=== PATIENT | female | born 1960 | race Caucasian/White ===

== ENCOUNTER 2020-09-14 11:03 | Outpatient (CLI) | payer BC, SELFPAY ==
--- NOTE | ~2020-09-14 | CT_ITS ---
EXAMINATION: CT lung screening EXAM DATE: 09/14/2020 11:24 INDICATION: Personal history of nicotine dependence. Left-sided breast cancer. TECHNIQUE: Spiral low dose CT of the chest without contrast. Axial, coronal and sagittal images were reviewed. The dose-length product (DLP) for this examination was 293.07 mGy-cm. The exposure was t ailored according to patient size (auto mA exposure control), and iterative reconstruction (ASIR) was used as additional dose reduction technique. Comparison is made to prior examination from 05/31/2019 . FINDINGS: Again there is very faint but diffuse lung mosaic attenuation, most likely some air trappi ng. No suspicious pulmonary nodules. Small amount of debris in the right mainstem bronchus. There is no mediastinal, hilar or axillary lymphadenopathy. There are no pleural or pericardial effusions. There is no pneumothorax. Heart normal in size. There are dense coronary artery calcifications. There is hepatic steatosis. There is a left adrenal adenoma measuring 2.3 cm. There is mild to moder ate thoracic spondylosis without osteoblastic or osteolytic lesions identified. IMPRESSION: 1. Lung-RADS category 1A, negative (<1%chance of malignancy); recommend continued LDCT screening in 1 year. 2. Dense coronary artery calcifications, consider cardiology consult if not recently evaluated. Reviewed, dictated and finalized at location B. COVERER IMPRESSION: 1. Lung-RADS category 1A, negative (<1%chance of malignancy); recommend contin ued LDCT screening in 1 year. 2. Dense coronary artery calcifications, consider cardiology consult if not re cently evaluated.
== END 2020-09-14 11:04 | disposition home or self-care (01) ==
LOC: CHSIMG 11:04
PROVIDERS: PCP Internal Medicine; Visit Provider Internal Medicine
DX: Z12.2 Encounter for screening for malignant neoplasm of respiratory organs (principal); Z87.891 Personal history of nicotine dependence
CPT/HCPCS: 71271

== ENCOUNTER 2021-03-19 12:44 | Outpatient (CLI) | payer BC, SELFPAY ==
--- NOTE | ~2021-03-19 | XR_ITS ---
EXAMINATION: XR knee RT 3V EXAM DATE: 03/19/2021 13:12 INDICATION: Right knee pain 2-3 weeks, numbness and tingling. TECHNIQUE: Three projections of the right knee. There is no prior study for comparison. FINDINGS: No evidence osteochondral defect or joint body in the right knee joint. There is mild pa tellofemoral compartment primary osteoarthritis. There are no acute fractures or dislocations identif ied. There is no subcutaneous gas. The soft tissue is unremarkable. There are no radiopaque forei gn bodies. No joint effusion. IMPRESSION: Mild right patellofemoral compartment osteoarthritis. Reviewed, dictated and finalized at location B.
== END 2021-03-19 12:45 | disposition home or self-care (01) ==
LOC: CHSIMG 12:46
PROVIDERS: PCP Internal Medicine; Visit Provider Internal Medicine
DX: M25.561 Pain in right knee (principal); R32 Unspecified urinary incontinence
CPT/HCPCS: 73562

== ENCOUNTER 2021-11-08 13:46 | Outpatient (CLI) | payer BC, SELFPAY ==
--- NOTE | ~2021-11-08 | CT_ITS ---
EXAMINATION:CT lung screening DATE: 11/08/2021 14:07 INDICATION: Personal history of nicotine dependence. TECHNIQUE: Computed tomography (CT) of the chest was performed without intravenous contrast. Automate d exposure control and iterative reconstruction technique were employed. The dose-length product (DLP ) was 253.31 mGy-cm. COMPARISON: Chest CT 09/14/2020 FINDINGS: The lungs demonstrate chronic mosaic attenuation, likely small airways disease. A calcified right lung nodule and calcified right hilar and mediastinal lymph nodes are consistent with old gran ulomatous disease. No pleural effusion. The heart size is normal. There are coronary artery calcifica tions. No pericardial effusion. There is diffuse hepatic steatosis. There is a 2.1 cm mass in left ad renal gland measuring low-attenuation, consistent with an adenoma. There is mild chronic anterior wed ging of multiple thoracic vertebral bodies. There is moderate thoracic spondylosis. IMPRESSION: 1. Lung-RADS category 1: Negative. Continue annual screening with noncontrast low-dose chest CT in 12 months. Reviewed, dictated and finalized at location B. IMPRESSION: 1. Lung-RADS category 1: Negative. Continue annual screening with noncontrast l ow-dose chest CT in 12 months.
== END 2021-11-08 13:47 | disposition home or self-care (01) ==
LOC: CHSIMG 13:47
PROVIDERS: PCP Internal Medicine; Visit Provider Internal Medicine
DX: Z12.2 Encounter for screening for malignant neoplasm of respiratory organs (principal); Z87.891 Personal history of nicotine dependence
CPT/HCPCS: 71271

== ENCOUNTER 2022-05-04 04:53 | Emergency (ER) | payer BC, SELFPAY ==
[2022-05-04] VITALS (52 sets, daily range): BP systolic 102–162; BP diastolic 50–84; PULSE 63–94; RESP 13–27; TEMP 36.4–36.8; O2SAT 90–98
--- NOTE | ~2022-05-04 | XR_ITS ---
EXAMINATION: XR chest 1V portable DATE: 05/04/2022 05:35 INDICATION: Anterior central chest pain with shortness of breath TECHNIQUE: frontal view of the chest was obtained. COMPARISON: Chest CT dated 11/08/2021 FINDINGS: The lungs are clear with no discernible airspace opacities, pulmonary edema, pleural effusion or pneu mothorax. The cardiomediastinal silhouette is normal. Bone island at the right humeral head. IMPRESSION: 1. No acute cardiopulmonary disease. Reviewed, dictated and finalized at location A.
--- NOTE | ~2022-05-04 | CT_ITS ---
EXAMINATION: CTA chest PE protocol DATE: 05/04/2022 06:51 INDICATION: Shortness of breath and anterior chest pain TECHNIQUE: Computed tomography (CT) pulmonary angiogram of the chest was performed with 100 mL Omnipa que-350 intravenous contrast. Additional 3D reconstructions utilizing coronal maximum intensity proje ction (MIP) were performed. The dose-length product was 743.29 mGy-cm. COMPARISON: None FINDINGS: No pulmonary embolism. Mild mosaic attenuation of both regions of increased lucency suggesting subseg mental air trapping in the setting of small airway disease along with additional scattered subsegment al groundglass opacities which could represent relative atelectasis, early pneumonia or mild pulmonar y edema. Calcified right middle lobe nodule and calcified right hilar and mediastinal lymph nodes con sistent with old granulomatous disease. No pleural effusion or pneumothorax. Heart size is normal. At herosclerotic coronary artery calcification. No pericardial effusion. There are small amount of bubbl y mucus in the dependent left mainstem bronchus. Thoracic aorta is normal in caliber with no dissecti on. No pathologically enlarged thoracic lymphadenopathy. Diffuse hepatic steatosis. Bilateral low-att enuation adenomas measuring 1.2 cm on the right and 2.5 cm on the left. Chronic appearing mild anteri or wedging at T10 and T11. Moderate to severe thoracolumbar spondylosis. IMPRESSION: 1. No pulmonary embolism. 2. Mosaic attenuation with regions of subsegmental air trapping related to small airway disease and s ubtle scattered groundglass opacities which could represent result of atelectasis, early pneumonia or mild pulmonary edema. Reviewed, dictated and finalized at location A. IMPRESSION: 1. No pulmonary embolism. 2. Mosaic attenuation with regions of subsegmental air trapping related to smal l airway disease and subtle scattered groundglass opacities which could represe nt result of atelectasis, early pneumonia or mild pulmonary edema.
--- NOTE | 2022-05-04 04:59 | ED.SOB ---
HPI - SOB/Dyspnea General Chief Complaint: Chest Pain <Laurent Munoz MD - Last Filed: 05/26/22 11:13> Stated Complaint: Chest Pain <Laurent Munoz MD - Last Filed: 05/26/22 11:13> Time Seen by Provider: 05/04/22 07:10 <Laurent Munoz MD - Last Filed: 05/26/22 11:13> Source: patient <Laurent Munoz MD - Last Filed: 05/26/22 11:13> History of Present Illness HPI Narrative: 62-year-old female, smoker with hypertension, dyslipidemia, diabetes mellitus, breast cancer, CVA without any residual defects, status post right carotid endarterectomy, negative cardiac catheterization 5 years ago presents to the ER with a 4 hour history of -- shortness of breath -- anterior chest pain it started at 2:00 a.m. the pain radiates to both shoulders. Initial pain level was 4/10 and this is currently 2/10. she had a similar episode earlier in the week and went to her primary care physician who advised her to come to the ER if she had a subsequent episode. currently the patient is pain-free. <Laurent Munoz MD - Last Filed: 05/26/22 11:13> MD elicited complaint: shortness of breath and chest pain <Laurent Munoz MD - Last Filed: 05/26/22 11:13> Onset (ago): hour(s) ( Started 3 hours ago) <Laurent Munoz MD - Last Filed: 05/26/22 11:13> Timing: improved <Laurent Munoz MD - Last Filed: 05/26/22 11:13> Severity: moderate <Laurent Munoz MD - Last Filed: 05/26/22 11:13> Exacerbating factors: nothing <Laurent Munoz MD - Last Filed: 05/26/22 11:13> Relieving factors: nothing <Laurent Munoz MD - Last Filed: 05/26/22 11:13> Associated symptoms: chest pain <Laurent Munoz MD - Last Filed: 05/26/22 11:13> Treatment prior to arrival: none <Laurent Munoz MD - Last Filed: 05/26/22 11:13> Related Data Home Medications: Home Medications Medication Instructions Recorded Confirmed anastrozole 1 mg tablet 1 mg PO DAILY 09/29/19 05/04/22 atenolol 50 mg tablet 50 mg PO DAILY 09/29/19 05/04/22 calcium carbonate 600 mg calcium 600 mg PO BID 09/29/19 05/04/22 (1,500 mg) tablet (Calcium) insulin detemir U-100 100 unit/mL 42 unit subcut QPM 09/29/19 05/04/22 (3 mL) subcutaneous pen (Levemir FlexTouch U-100 Insulin) irbesartan 75 mg tablet 75 mg PO DAILY 09/29/19 05/04/22 metformin 500 mg tablet,extended 2,000 mg PO BID 09/29/19 05/04/22 release 24 hr omega 8-gcj-xkw-fish oil 1,000 mg 1 cap PO BID 09/29/19 05/04/22 (120 mg-180 mg) capsule (Fish Oil) triamterene 37.5 1 tablet PO DAILY 09/29/19 05/04/22 mg-hydrochlorothiazide 25 mg tablet aspirin 81 mg tablet,delayed 81 mg PO DAILY 05/04/22 05/04/22 release duloxetine 20 mg capsule,delayed 20 mg PO DAILY 05/04/22 05/04/22 release omeprazole 20 mg capsule,delayed 20 mg PO DAILY 05/04/22 05/04/22 release <Laurent Munoz MD - Last Filed: 05/26/22 11:13> Allergies/Adverse Reactions: Allergies Allergy/AdvReac Type Severity Reaction Status Date / Time Wrrxdze-FFT-GeX Reductase AdvReac MUSCLE Verified 05/04/22 05:17 Inhibitor CRAMPING [Gfnbbnh-Wiw-Hmx Reductase Inhibitor] <Laurent Munoz MD - Last Filed: 05/26/22 11:13> Review of Systems Review of Systems: All systems reviewed & are unremarkable except as noted in HPI and below <Laurent Munoz MD - Last Filed: 05/26/22 11:13> Constitutional: Constitutional: Reports as per HPI and Reports no additional constitutional complaints <Laurent Munoz MD - Last Filed: 05/26/22 11:13> Eyes: Eyes: Reports as per HPI and Reports no additional eye complaints <Laurent Munoz MD - Last Filed: 05/26/22 11:13> ENT: Reports system reviewed and no additional complaints, except as documented and Reports as per HPI <Laurent Munoz MD - Last Filed: 05/26/22 11:13> Cardiovascular: Cardiovascular: Reports as per HPI, Reports no additional cardiovascular complaints and
--- NOTE | 2022-05-04 05:00 | ECG_ITS ---
Measurements Intervals [place] Rate: 81 P: 26 WI: 144 QRS: 12 QRSD: 103 T: 59 QT: 379 QTc: 440 Interpretive Statements SINUS RHYTHM WITH SINUS ARRHYTHMIA BASELINE ARTIFACT MODERATE ST DEPRESSION CONSIDER MYOCARDIAL ISCHEMIA ABNORMAL ECG NO PREVIOUS ECG AVAILABLE FOR COMPARISON Electronically Signed On 05-04-2022 15:33:28 CDT by Jayant Andersen M.D.
[2022-05-04 05:35] LABS: Basophils Absolute Auto 0.08 K/mm3 (0.00-0.10); Basophils Percent Auto 0.7 % (0.0-1.0); Eosinophils Absolute Auto 0.14 K/mm3 (0.02-0.50); Eosinophils Percent Auto 1.2 % (1.0-6.0); Hematocrit 42.4 % (35.0-49.0); Immature Granulocyte Absolute 0.09 K/mm3 (0.00-0.00); Immature Granulocyte Percent A 0.8 % (0.0-0.0); Lymphocytes Absolute Auto 1.58 K/mm3 (1.10-4.50); Lymphocytes Percent Auto 14.1 % (18.0-42.0); Mean Corpuscular Hemoglobin 30.4 pg (27.0-31.0); Mean Corpuscular Volume 92.2 fL (78.0-102.0); Mean Platelet Volume 11.5 fl (9.2-11.8); Monocytes Absolute Auto 0.64 K/mm3 (0.10-0.90); Monocytes Percent Auto 5.7 % (2.0-11.0); Neutrophils Absolute Auto 8.7 K/mm3 (1.7-7.2); Neutrophils Percent Auto 77.5 % (50.0-70.0); Platelet Count Result 250 K/mm3 (150-420); White Blood Count 11.2 K/mm3 (4.8-10.8)
[2022-05-04 05:48] LABS: Partial Thromboplastin Time 37.2 SEC (23.90-30.70)
[2022-05-04 05:54] LABS: D Dimer 0.62 mg/L (0.19-0.50)
[2022-05-04 05:56] LABS: Alanine Aminotransferase 52 U/L (14-59); Albumin Level 3.5 g/dL (3.4-5.0); Alkaline Phosphatase 98 U/L (46-116); Anion Gap 11 mmol/L (8-16); Aspartate Amino Transferase 25 U/L (15-37); Bilirubin,Total 0.6 mg/dL (0.00-1.00); Blood Urea Nitrogen 13 mg/dL (7-18); Calcium 8.7 mg/dL (8.5-10.1); Carbon Dioxide 25 mmol/L (21-32); Chloride 100 mmol/L (98-108); Estimated CRCL calculation 72 ml/min; Estimated Glomerular Filt Rate > 60; Glucose 354 mg/dL (70-99); NT Pro B Type Natriuretic Pept 179 pg/mL (0-125); Osmolality Calculated 296 mOsm/kg (285-295); Sodium 136 mmol/L (136-145); Total Protein 7.5 g/dL (6.4-8.2)
[2022-05-04 05:58] LABS: Troponin I 141.5 ng/L (0.00-60.4)
[2022-05-04] MEDS: LACTATED RINGERS 500 ML 999 ML IV CONT (06:17)
--- NOTE | 2022-05-04 06:56 | PC.NURSE ---
IV fluids (LR 500ml) delayed due to pt out of room for CT-A.
[2022-05-04] MEDS: METOPROLOL TARTRATE 50 MG TAB 25 MG PO (07:09)
[2022-05-04] MEDS: HEPARIN SOD/D5W 100 UNITS/ML 25,000 UNITS/250 ML BAG 9 UNITS IV CONT (07:11)
[2022-05-04] MEDS: HEPARIN SODIUM 5,000 UNITS/ML VIAL 4000 UNITS IV PUSH (07:11)
[2022-05-04] MEDS: ASPIRIN 81 MG CHEWABLE TABLET 324 MG PO (07:22)
--- NOTE | 2022-05-04 12:24 | PC.NURSE ---
On 05/04/22, the student, [danny strong ], provided care and completed [facility] documentation on this patient. I have reviewed the student's documentation and agree with the findings.
== END 2022-05-04 12:05 | disposition short-term general hospital (02) ==
PROVIDERS: Internal Medicine Critical Care Medicine; Emergency Provider Emergency Medicine; PCP Internal Medicine
DX: I21.4 Non-ST elevation (NSTEMI) myocardial infarction (principal); I10 Essential (primary) hypertension; E78.5 Hyperlipidemia, unspecified; E11.9 Type 2 diabetes mellitus without complications
CPT/HCPCS: 36415; 71045; 71275; 80053; 83880; 84484; 85025; 85380; 85610; 85730; 93005; 96361; 96365; 96366; 99285; A9270; J1644; J7120; Q9967

== ENCOUNTER 2022-07-16 15:03 | Emergency (ER) | payer BC, SELFPAY ==
[2022-07-16] VITALS (7 sets, daily range): BP systolic 101–152; BP diastolic 66–80; PULSE 88–93; RESP 18–20; TEMP 37; O2SAT 92–100
--- NOTE | ~2022-07-16 | XR_ITS ---
EXAMINATION: XR chest 1V portable INDICATION: Cough and shortness of breath TECHNIQUE: Portable AP chest at 1624 hours COMPARISON: 05/04/2022 FINDINGS: There is subsegmental atelectasis of the right midlung zone. A mild diffuse interstitial pa ttern is present. Cardiomegaly is noted. There are changes of interval cardiac surgery. There are min imal airspace opacities of the left lung base. No pneumothorax is identified. IMPRESSION: 1. Cardiomegaly with mild pulmonary edema. 2. Minimal left basilar airspace opacity, atelectasis versus pneumonia. Reviewed, dictated and finalized at location B. ER SERVICES MANAGER
--- NOTE | 2022-07-16 15:27 | ECG_ITS ---
Measurements Intervals [employer] Rate: 88 P: 17 KS: 151 QRS: 24 QRSD: 92 T: 128 QT: 362 QTc: 439 Interpretive Statements SINUS RHYTHM BASELINE ARTIFACT NONSPECIFIC ST & T-WAVE ABNORMALITY BORDERLINE ECG COMPARED TO ECG 05/04/2022 05:00:23 NO SIGNIFICANT CHANGES Electronically Signed On 07-16-2022 17:09:42 FARM EQUIPMENT ENGINEER by Jayant Andersen M.D.
--- NOTE | 2022-07-16 15:28 | ED.GENADULT ---
HPI - General Adult General Chief complaint: Upper Respiratory Infection Stated complaint: has pneumonia Time Seen by Provider: 07/16/22 15:11 History of Present Illness HPI narrative: Salena is a 62F with a PMH of CAD with recent bypass, HTN, tobacco abuse, carotid stenosis s/p surgery and breast cancer that presented to the ED not feeling well. 5 days ago she developed a cough which has become worse. Since then she has had a worsening cough, dyspnea, chest pain with a cough, and fatigue. There has been no syncope, vomiting or diarrhea. Related Data Home Medications Medication Instructions Recorded Confirmed anastrozole 1 mg tablet 1 mg PO DAILY 09/29/19 07/16/22 calcium carbonate 600 mg calcium 600 mg PO BID 09/29/19 07/16/22 (1,500 mg) tablet (Calcium) insulin detemir U-100 100 unit/mL 42 unit subcut QPM 09/29/19 07/16/22 (3 mL) subcutaneous pen (Levemir FlexTouch U-100 Insulin) irbesartan 75 mg tablet 75 mg PO DAILY 09/29/19 07/16/22 metformin 500 mg tablet,extended 1,000 mg PO BID 09/29/19 07/16/22 release 24 hr omega 6-zzw-qkf-fish oil 1,000 mg 1 cap PO BID 09/29/19 07/16/22 (120 mg-180 mg) capsule (Fish Oil) triamterene 37.5 1 tablet PO DAILY 09/29/19 07/16/22 mg-hydrochlorothiazide 25 mg tablet aspirin 81 mg tablet,delayed 81 mg PO DAILY 05/04/22 07/16/22 release duloxetine 20 mg capsule,delayed 20 mg PO TID 05/04/22 07/16/22 release omeprazole 20 mg capsule,delayed 20 mg PO DAILY 05/04/22 07/16/22 release amlodipine 5 mg tablet 5 mg PO DAILY 07/16/22 07/16/22 clopidogrel 75 mg tablet 75 mg PO DAILY 07/16/22 07/16/22 metoprolol tartrate 75 mg tablet 75 mg PO DAILY 07/16/22 07/16/22 Allergies Allergy/AdvReac Type Severity Reaction Status Date / Time Pesgbpg-QSN-WjY Reductase AdvReac MUSCLE Verified 07/16/22 15:27 Inhibitor CRAMPING [Qclipmq-Vdv-Vuh Reductase Inhibitor] Review of Systems Review of Systems: All systems reviewed & are unremarkable except as noted in HPI and below Exam Const: General: healthy appearing, no acute distress and alert Nutritional Appearance: well nourished Orientation/consciousness: patient oriented x3 HENMT: Head: normal to inspection Ears: external ears normal Face/Nose/Sinus: Normal external nose present Eyes: Conjunctivae: conjunctivae normal Pupils: Equal, round and reactive pupils present EOM: EOMs intact bilaterally Neck: Neck: normal visual inspection Chest: Chest palpation & inspection: normal inspection of the chest Resp: Effort & Inspection: labored, no retractions and tachypneic Other: Diffuse crackles and rhonchi with prolonged expiratory phase Cardio: Rate: regular rate Rhythm: regular rhythm GI: Inspection: non-distended GI Palp: Yes Soft to palpation and No Tenderness to palpation present (GI) Back/Spine/Pelvis: Back: no CVA tenderness Skin: General skin exam: normal color Rashes: no rashes Neuro: General: patient oriented x3 and moves all extremities Extrem: General: normal to inspection Psych: Mental Status: mental status grossly normal Course Course Emergency Course: Ordered CXR, labs, EKG and breathing treatment. EKG showed NSR with a rate of 88, normal axis, and non-specific T wave abnormality EXAMINATION: XR chest 1V portable INDICATION: Cough and shortness of breath TECHNIQUE: Portable AP chest at 1624 hours COMPARISON: 05/04/2022 FINDINGS: There is subsegmental atelectasis of the right midlung zone. A mild diffuse interstitial pattern is present. Cardiomegaly is noted. There are changes of interval cardiac surgery. There are minimal airspace opacities of the left lung base. No pneumothorax is identified. IMPRESSION: 1. Cardiomegaly with mild pulmonary edema. 2. Minimal left basilar airspace opacity, atelectasis versus pneumonia. Labs showed a normal white count, low Mg, elevated troponin and BNP, as well as a +flu A She was given tamiflu, lovenox and lasix I spoke with Dr. Whitfield
[2022-07-16 15:46] LABS: Basophils Absolute Auto 0.05 K/mm3 (0.00-0.10); Basophils Percent Auto 0.7 % (0.0-1.0); Eosinophils Absolute Auto 0.08 K/mm3 (0.02-0.50); Eosinophils Percent Auto 1.1 % (1.0-6.0); Hemoglobin 11.4 g/dL (12.0-15.0); Immature Granulocyte Percent A 1.3 % (0.0-0.0); Lymphocytes Absolute Auto 0.89 K/mm3 (1.10-4.50); Mean Corpuscular HGB Conc 32.6 g/dL (32.0-36.0); Mean Corpuscular Hemoglobin 27.9 pg (27.0-31.0); Mean Corpuscular Volume 85.8 fL (78.0-102.0); Mean Platelet Volume 9.5 fl (9.2-11.8); Monocytes Absolute Auto 0.56 K/mm3 (0.10-0.90); Monocytes Percent Auto 7.5 % (2.0-11.0); Neutrophils Absolute Auto 5.8 K/mm3 (1.7-7.2); Neutrophils Percent Auto 77.4 % (50.0-70.0); Platelet Count Result 334 K/mm3 (150-420); Red Blood Count 4.08 M/mm3 (4.20-5.40); Red Cell Distribution Width 14.6 % (11.6-14.4); White Blood Count 7.4 K/mm3 (4.8-10.8)
[2022-07-16] MEDS: IPRATROPIUM 0.5 MG/ALBUTEROL SULFATE 2.5 MG AMPUL.NEB 3 ML INHALATION (15:52)
[2022-07-16 16:19] LABS: Lactic Acid Reflex 1.4 mmol/L (0.4-2.0)
[2022-07-16 16:21] LABS: Alanine Aminotransferase 22 U/L (14-59); Alkaline Phosphatase 83 U/L (46-116); Anion Gap 10 mmol/L (8-16); Aspartate Amino Transferase 20 U/L (15-37); Bilirubin,Total 0.3 mg/dL (0.00-1.00); Blood Urea Nitrogen 12 mg/dL (7-18); Carbon Dioxide 27 mmol/L (21-32); Chloride 99 mmol/L (98-108); Estimated CRCL calculation 88 ml/min; Estimated Glomerular Filt Rate > 60; Glucose 168 mg/dL (70-99); Magnesium 1.1 mg/dL (1.8-2.4); NT Pro B Type Natriuretic Pept 452 pg/mL (0-125); Osmolality Calculated 285 mOsm/kg (285-295); Potassium 3.6 mmol/L (3.5-5.1); Sodium 136 mmol/L (136-145); Total Protein 6.7 g/dL (6.4-8.2)
[2022-07-16 16:23] LABS: Influenza A QL RT-PCR Positive (Negative); Influenza B QL RT-PCR Negative (Negative); SARS-CoV-2 RNA PCR Negative (Negative)
[2022-07-16 16:24] LABS: Calcium 8.6 mg/dL (8.5-10.1); Troponin I 66.5 ng/L (0.00-60.4)
[2022-07-16 16:25] LABS: RSV RNA, RT-PCR Negative (Negative)
[2022-07-16] MEDS: OSELTAMIVIR PHOSPHATE 75 MG CAPSULE (16:41)
[2022-07-16] MEDS: MAGNESIUM SULF 2 GM/WATER 50ML 2 GM/50 ML BAG IVPB (16:41)
[2022-07-16] MEDS: FUROSEMIDE INJ 40 MG/4 ML VIAL IV PUSH (16:44)
[2022-07-16] MEDS: ENOXAPARIN 100 MG/ML SYRINGE SUB-Q (16:44)
--- NOTE | 2022-07-16 16:59 | PC.NURSE ---
1657 [address] tier called from [facility] and spoke with Dr Brasher
--- NOTE | 2022-07-16 17:18 | PC.NURSE ---
170 Dr navarro spoke with hospitalist and pt was accepted to [facility]
== END 2022-07-16 19:20 | disposition home or self-care (01) ==
PROVIDERS: Emergency Provider Family Medicine; PCP Internal Medicine
DX: J10.1 Influenza due to other identified influenza virus with other respiratory manifestations (principal); R77.8 Other specified abnormalities of plasma proteins; I10 Essential (primary) hypertension; I25.10 Atherosclerotic heart disease of native coronary artery without angina pectoris; E11.9 Type 2 diabetes mellitus without complications; Z95.1 Presence of aortocoronary bypass graft; Z85.3 Personal history of malignant neoplasm of breast; Z79.02 Long term (current) use of antithrombotics/antiplatelets; Z79.82 Long term (current) use of aspirin; Z79.84 Long term (current) use of oral hypoglycemic drugs; Z79.4 Long term (current) use of insulin; Z79.811 Long term (current) use of aromatase inhibitors; Z20.822 Contact with and (suspected) exposure to COVID-19
CPT/HCPCS: 36415; 71045; 80053; 83605; 83735; 83880; 84484; 85025; 87637; 93005; 94640; 96365; 96372; 96375; 99284; A9270; J1650; J1940; J3475

== ENCOUNTER 2022-08-04 11:00 | Outpatient (RCR) | payer BC, SELFPAY | END 2022-08-04 13:42 | disposition home or self-care (01) | PROVIDERS: PCP Internal Medicine; Visit Provider Internal Medicine | DX: Z95.1 Presence of aortocoronary bypass graft (principal) | CPT/HCPCS: 93798 ==

== ENCOUNTER 2023-05-29 15:31 | Outpatient (CLI) | payer BC, SELFPAY ==
--- NOTE | ~2023-05-29 | XR_ITS ---
EXAMINATION: XR hip BI 2V w AP pelvis DATE: 05/29/2023 16:00 INDICATION: Chronic low back pain radiating down both legs. TECHNIQUE: An anteroposterior view of the pelvis and 2 views of each hip were obtained. COMPARISON: None. FINDINGS: Bone alignment is normal. No fracture. There is mild osteoarthritis of the hips. IMPRESSION: 1. Mild osteoarthritis of the hips. Reviewed, dictated and finalized at location E. AL RISK MANAGEMENT DIRECTOR
--- NOTE | ~2023-05-29 | XR_ITS ---
EXAMINATION: XR lumbar spine 2-3V DATE: 05/29/2023 15:59 INDICATION: Chronic low back pain. TECHNIQUE: 3 views of lumbar spine were obtained. COMPARISON: None. FINDINGS: There is 18 degrees levoscoliosis of thoracolumbar spine. There is 3 mm retrolisthesis of T 12 on L1, L1 on L2, L2 on L3, and L3 on L4. There is mild chronic anterior wedging of T11 vertebral b chetan. There is mildly decreased disc height at T12-L1, severely decreased disc height at L1-L2, modera tely decreased disc height at L2-L3, and mildly decreased disc at L3-L4, L4-L5, and L5-S1. There is m ultilevel severe facet joint osteoarthritis. IMPRESSION: 1. Severe lumbar spondylosis. 2. Thoracolumbar levoscoliosis. Reviewed, dictated and finalized at location E. EL TICKETING REVIEWER
== END 2023-05-29 15:32 | disposition home or self-care (01) ==
PROVIDERS: PCP Internal Medicine; Visit Provider Internal Medicine
DX: M54.50 Low back pain, unspecified (principal); M25.552 Pain in left hip; M25.551 Pain in right hip; M16.0 Bilateral primary osteoarthritis of hip; M43.06 Spondylolysis, lumbar region; M41.85 Other forms of scoliosis, thoracolumbar region
CPT/HCPCS: 72100; 73521

== ENCOUNTER 2023-06-04 13:49 | Outpatient (RCR) | payer BC, SELFPAY ==
--- NOTE | 2023-06-04 14:32 | OPREHPOC ---
Outpatient Therapy Plan of Care This is a Multidisciplinary Plan of Care that may contain components documented by all disciplines (PT, OT, and ST.) PT Problem 1 PT Problem #1 Knowledge Deficit PT Goal 1 Goal independent and compliant with HEP Target Visit 6 PT Problem 2 PT Problem #2 Pain PT Goal 1 Goal decrease pain at worst to 5/10 or less in the lower back and R LE. Target Visit 12 PT Problem 3 PT Problem #3 Impaired Strength PT Goal 1 Goal 1. improve bilateral hip strength to 4+/5 or better 2. improve R knee strength to 5/5 3. patient to hold PPT and TA contraction with bilateral hip flexion from hooklying. Target Visit 12 PT Problem 4 PT Problem #4 Impaired Functional Mobil PT Goal 1 Goal 1. oswestry to display less than 30% functional decline 2. patient to stand and ambulation for 30 minutes in therapy without sitting rest 3. patient to perform safe squat and lift of 30lbs to perform laundry and home/work duties Target Visit 12 PT Problem 5 PT Problem #5 Impaired Flexibility PT Goal 1 Goal 1. 15 degrees or less bilateral hamstrings tightness per the 90/90 test. 2. mild or less bilateral piriformis mm tightness
--- NOTE | 2023-06-04 14:32 | PTOPEVAL1 ---
Assessment and note entered by JT File, PT Evaluation Information Assessment Status Evaluation Diagnosis lower back pain Onset 05/23/23 Subjective Information patient reports she has pain in the lower back. she reports she has been having pain for a long time. she reports she has tried to get by with pushing through the pain and using over the counter meds. however, she reports as of recent it is hard to work, her OTC regimen is not working, and she is unable to stand to fold laundry or cook . she reports she is also limited in walking. she reports she has symptoms down the R LE most of the time along with the lower back pain. she reports she had an xray last thursday, and reports she wants to get an MRI. she reports she has to do therapy before getting the MRI. 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 Reported Pain Level Pain Score 2: Self Report Assessment PT Clinical Summary mrs. greene is a 63 yo woman who presents to skilled PT services for evaluation and treatment of lower back pain. patient presents with signs and symptoms consistent with DDD/lumbar spondylosis. she displays decreased rom, tight muscles, weakness in the LE's/core, and deficits in standing and walking time. she would benefit from continued skilled PT to address her objective /functional deficits and progerss towards a return to her prior level functional activity performance/quality of life. Plan of Care Interventions Electrical Stimulation,Gait Training,Hot Pack/Cold Pack,Manual Therapy,Neuro Re-education,Patient/ Caregiver Educati,Therapeutic Activities, Therapeutic Exercise PT Services Indicated Yes Treatment Frequency and 3x weekly for 12 visits Duration These treatments will address the objective and functional deficits as defined above. The patient will be advanced safely and appropriately in order for the patient to progress towards his/her prior level of function. Additional exercises will be introduced and as well as a comprehensive home exercise program upon discharge, if needed, ?to ensure carryover of functional gains achieved in the clinic. This treatment plan has been reviewed and agreement upon by the patient.
--- NOTE | 2023-07-10 17:25 | OPREHPOC ---
Outpatient Therapy Plan of Care This is a Multidisciplinary Plan of Care that may contain components documented by all disciplines (PT, OT, and ST.) PT Problem 1 PT Problem #1 Knowledge Deficit PT Goal 1 Goal independent and compliant with HEP Target Visit 6 Progress Met PT Problem 2 PT Problem #2 Pain PT Goal 1 Goal decrease pain at worst to 5/10 or less in the lower back and R LE. Target Visit 12 Progress Not Met PT Problem 3 PT Problem #3 Impaired Strength PT Goal 1 Goal 1. improve bilateral hip strength to 4+/5 or better 2. improve R knee strength to 5/5 3. patient to hold PPT and TA contraction with bilateral hip flexion from hooklying. Target Visit 12 Progress Not Met PT Problem 4 PT Problem #4 Impaired Functional Mobil PT Goal 1 Goal 1. oswestry to display less than 30% functional decline 2. patient to stand and ambulation for 30 minutes in therapy without sitting rest 3. patient to perform safe squat and lift of 30lbs to perform laundry and home/work duties Target Visit 12 Progress Not Met PT Problem 5 PT Problem #5 Impaired Flexibility PT Goal 1 Goal 1. 15 degrees or less bilateral hamstrings tightness per the 90/90 test. 2. mild or less bilateral piriformis mm tightness Progress Not Met
--- NOTE | 2023-07-10 17:25 | PTOPDC ---
Assessment and note entered by Dee Wei DPT Evaluation Information Assessment Status Discharge Diagnosis lower back pain Onset 05/23/23 Subjective Information patient reports that since starting therapy she thinks her back pain is about the same. she does feel like she can ease it a little bit better. she reports she is unable to walk a block, she is unable to stand to do dishes and has pain at work. She reports she is independent with HEP. Reported Pain Level Pain Score 2: Self Report Assessment PT Clinical Summary Patient was seen for 10 visits of skilled PT with minimal improvements towards goals. She met goal for HEP but did not meet goal for strength, flexibility and pain. She reports pain with standing to do dishes, walking a block and working . Recommend patient return to PCP regarding MRI and next steps in care. Patient will be discharged due to limited progress. Plan of Care PT Services Indicated No
== END 2023-07-10 15:28 | disposition home or self-care (01) ==
LOC: CHSPT 13:49
PROVIDERS: PCP Internal Medicine; Visit Provider Internal Medicine
DX: M54.50 Low back pain, unspecified (principal)
CPT/HCPCS: 97014; 97110; 97150; 97161; G0283

== ENCOUNTER 2023-12-15 12:50 | Outpatient (CLI) | payer BC, SELFPAY ==
--- NOTE | ~2023-12-15 | US_ITS ---
Pelvic ultrasound. Clinical History: Postmenopausal bleeding Technique: Realtime transvaginal scanning of the pelvis was performed. Color flow Doppler and Doppler spectral analysis were performed. Findings: The uterus is anteverted, and measures 5.4 x 3.6 x 3.0 cm. The endometrial stripe has a th ickness of 13 mm. No focal mass is identified. Neither ovary seen. No adnexal mass seen. There is no evidence of free fluid in the cul de sac. Impression: Endometrial stripe is thickened to 13 mm. Diagnostic considerations could include endometrial hyperpl christofer versus endometrial neoplasm. Further workup recommended. Reviewed, dictated and finalized at location M. Impression: Endometrial stripe is thickened to 13 mm. Diagnostic considerations could inclu de endometrial hyperplasia versus endometrial neoplasm. Further workup recommen ded.
== END 2023-12-15 12:51 | disposition home or self-care (01) ==
PROVIDERS: PCP Internal Medicine; Visit Provider Internal Medicine
DX: N95.0 Postmenopausal bleeding (principal); R93.89 Abnormal findings on diagnostic imaging of other specified body structures
CPT/HCPCS: 76830

== ENCOUNTER 2024-03-11 00:16 | Day surgery (SDC) | payer BC, SELFPAY ==
[2024-03-07 10:16] VITALS: BMI 36.4
--- NOTE | 2024-03-07 10:26 | SUR.PREOP ---
Addendum entered by Sanjana Arizmendi RN 03/07/24 10:57: pt to take metoprolol morning of procedure Original Note: Report to the Outpatient Waiting Room, entrance under the green pavilion located off [facility], at time 0600 on date 03/11/24. Planned Procedure Time: 0730. Time changes happen often and if your time is changed the preop area will call you the afternoon before. - You and your visitor will be asked to self-screen and do not enter if you have any COVID symptoms. - A mask is optional within the hospital at this time. Patients may have clear liquids (water, carbonated beverages, clear teas, apple juice) until 3 hours prior to surgery with a maximum of 20 ounces. - No food from midnight until time of surgery - Infants may have breast milk until 4 hours before surgery, infant formula 6 hours prior to surgery. - Children will be allowed to drink immediately following surgery. If applicable, please bring a bottle or sippy cup to assist with drinking. Juice, water, soda, and popsicles are readily available. For infants on formula, please bring formula the day of surgery. Pacifiers are allowed. Take the following medications with a SIP of water the morning of surgery: ___amlodipine,duloxetine DO NOT STOP ANY OF YOUR OTHER PRESCRIPTION MEDICATIONS PRIOR TO SURGERY ?EXCEPT THE FOLLOWING Medications to discontinue per physician - may continue aspirin per dr. mason stated by patient, calcium and fish oil 3 days prior, metformin, semaglutide, omeprazole day of surgery. 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 No jewelry (including any body piercings) or valuables the day of surgery, leave them at home. Please take a shower or bath the night before, or the morning of, surgery with an antibacterial soap. Wear comfortable, loose fitting clothing. Children are encouraged to wear pajamas. - Jewelry must be removed prior to entering the operating room. Rings and piercings that are not removed may be cut off. - The hospital will not accept responsibility for valuables. - Please leave all valuables, including medications, at home the day of surgery. If you are going home after surgery, a licensed security patrol driver must drive you home. - NO public transportation without another adult if you receive anesthesia. - We recommend that an adult stay with you for 24 hours following discharge. - We also recommend that you do not drive, make important decision, drink alcoholic beverages, or take any drugs that were not prescribed by your health care provider for at least 24 hours after your discharge time. For Pediatric surgeries, we recommend two adults accompany the child home. Follow any additional instructions given to you from your surgeon. If you or anyone in your household have experienced Covid symptoms in the past week, please notify your surgeon or the nurse liaison at the phone number below for possible testing. Telephone instructions given to __patient__and asked if any additional questions and then verbalized understanding. Patient advised to call surgeon office or pre surgery nurse liaison [phone] if any additional questions.
[2024-03-11 06:35] LABS: Glucose Point of Care 97 mg/dl (65-105)
[2024-03-11] MEDS: LACTATED RINGERS 1,000 ML 30 ML IV CONT (07:00)
[2024-03-11] MEDS: ACETAMINOPHEN 500 MG TABLET 1000 MG PO (07:00)
--- NOTE | 2024-03-11 07:08 | WPDANESEPPF ---
Anes - Initial Pre Proc Eval Procedure: Operation Date: 03/11/24 07:30 Proposed Procedures p Hysteroscopy, Dilation and Curettage with Removal of Any Endometrial Lesions If Necessary - Mykel Cordero MD Date/Time: 03/11/24 07:08 Surgeon: Mykel Cordero MD Pre Op Diagnosis: Post Menopausal Bleeding, Thickened Endom Strip Patient Data Age: 64 Gender: F Height: 1.68 m Weight: 102.52 kg Allergies Allergy/AdvReac Type Severity Reaction Status Date / Time Kwlmcmj-EMS-RsK Reductase AdvReac MUSCLE Verified 03/01/24 09:25 Inhibitor CRAMPING [Rluvgeq-Rhe-Ted Reductase Inhibitor] Home Medications Medication Instructions Recorded Confirmed Type calcium carbonate (Calcium 600) 600 mg PO BID 09/29/19 03/07/24 History insulin detemir U-100 100 unit/mL 30 unit subcut QPM 09/29/19 03/07/24 History (3 mL) subcutaneous pen (Levemir FlexTouch U-100 Insulin) metformin 500 mg tablet,extended 1,000 mg PO BID 09/29/19 03/07/24 History release 24 hr omega 6-lgz-ulk-fish oil 1,000 mg 1 cap PO BID 09/29/19 03/07/24 History (120 mg-180 mg) capsule (Fish Oil) aspirin 81 mg tablet,delayed 81 mg PO DAILY 05/04/22 03/07/24 History release duloxetine 20 mg capsule,delayed 20 mg PO TID 05/04/22 03/07/24 History release omeprazole 20 mg capsule,delayed 20 mg PO DAILY 05/04/22 03/07/24 History release amlodipine 5 mg tablet 5 mg PO DAILY 07/16/22 03/07/24 History clopidogrel 75 mg tablet 75 mg PO DAILY 07/16/22 03/07/24 History metoprolol tartrate 75 mg tablet 75 mg PO DAILY 07/16/22 03/07/24 History semaglutide 7 mg tablet (Rybelsus) 7 mg PO DAILY 03/01/24 03/07/24 History Laboratory Tests 03/11/24 06:33 POC Capillary Glucose 97 mg/dl (65-105) Patient hx anesthesia problems: none Family hx anesthesia problems: none Results Review: All pre-operative results and documents have been reviewed as part of the pre-operative evaluation. [facility] Past Medical History Medical History Cancer Heart attack Heart disease Stroke Surgical History Surgical History H/O heart bypass surgery History of breast surgery History of removal of skin mole History of tubal ligation Previous section Family History Family History Father Alcoholism Cancer Mother Cancer Diabetes mellitus Hypertension Heart disease Sibling Cancer Diabetes mellitus Hypertension Heart disease Other Depression Anxiety Grandparent Cancer Hypertension Heart disease Cerebrovascular accident Social History Social History Smoking packs per day: 1 Smoking cigarettes per day: 20.0 Years smoked: 47 Smoking pack-years: 47.00 Smoking status: Current every day smoker Tobacco type: cigarettes Alcohol use details: occasionally Living arrangements: with family Anes - Eval Final PreProcedure Day of Procedure 03/11/24 07:08 Patient weight: obese Heart: regular rate and rhythm Lungs: clear to auscultation Airway: Mallampati scale and special considerations (Edentulous. ) Neurological: alert and oriented Last oral intake: >/= 8 hours ASA classification: III Emergent: no Anesthetic plan: proceed Anesthesia type and monitoring: general GIVS and standard monitoring Results Review: All pre-operative results and documents have been reviewed as part of the pre-operative evaluation. 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 Smoker, 1 ppd for many years, smoked at 5 am today. DM (fsbs 97). Informed Consent: The patient's anesthetic plan and its attendant risks and benefits were discussed with the patient/family/POA. Questions were solicited and answers provided to the satisfacti
[2024-03-11 07:15] VITALS: BP 129/59; PULSE 70; RESP 16; TEMP 36.4; O2SAT 98
--- NOTE | 2024-03-11 07:27 | WPDHPUPDATE1 ---
History and Physical Update Update Date/Time: 03/11/24 07:27 History and Physical has been reviewed, including an updated exam of the patient. There are NO changes in the patient's condition. Risks, benefits, and alternatives have been discussed and questions answered. Patient agrees to proceed with procedure.
[2024-03-11] MEDS: ceFAZolin 2 GM/D5W 50 ML 2 GM/50 ML BAG IVPB (07:30)
[2024-03-11] MEDS: LIDOCAINE HCL 1% LOCAL INJ 10 ML VIAL INFILTRATE (07:45)
[2024-03-11 07:57] VITALS: BP 120/56; PULSE 78; RESP 16; O2SAT 94
[2024-03-11 08:03] LABS: Glucose Point of Care 99 mg/dl (65-105)
--- NOTE | 2024-03-11 08:03 | W.PM.PROC2 ---
Procedure Note - Detailed Date of Procedure 03/11/24 Pre-op Diagnosis Post Menopausal Bleeding, Thickened Endom Strip Post-op Diagnosis Same Procedure Performed Diagnostic hysteroscopy and dilation and curettage Surgeon Mykel Cordero MD Anesthesia MAC and Local Indications Postmenopausal bleeding, ultrasound with thickened endometrial stripe, suboptimal office endometrial biopsy Findings Normal atrophic appearing cavity, uterus sound to 6cm, minimal tissue with curettage Description of Procedure After informed consent was obtained patient was taken to the operating room and adequate IV sedation was administered. Attention was turned to the vagina. Speculum was inserted. Single-tooth tenaculum placed on the anterior lip of the cervix. 10cc of 1% lidocaine was injected at the cervicovaginal interface at the 2,5,8 and 10 position. The uterus was sounded to 6 cm. The cervix was dilated to an 5 Bejarano dilator. The hysteroscope was inserted into the cavity. The findings were a normal uterine cavity. A curettage was performed with minimal tissue. Sponge count correct. The patient taken to recovery in stable condition. Estimated Blood Loss 5 Drains No Packing No Pathology Yes (endometrial curettings) Complications No immediate complications Condition Stable Disposition Same day [facility] Billing Surgery - Charge Forward: Surgery Billing
[2024-03-11 08:15] VITALS: BP 148/73; PULSE 75; RESP 16; O2SAT 95; BMI 35.3
[2024-03-11 08:45] VITALS: BP 173/82; PULSE 78; RESP 14
== END 2024-03-11 09:04 | disposition home or self-care (01) ==
PROVIDERS: PCP Internal Medicine; Visit Provider Obstetrics & Gynecology
PROC: 0U5B8ZZ Destruction of Endometrium, Via Natural or Artificial Opening Endoscopic (ICD-10-PCS; CPT 58563; principal; 2024-03-11 07:30)
DX: N95.0 Postmenopausal bleeding (principal); R93.89 Abnormal findings on diagnostic imaging of other specified body structures; N85.8 Other specified noninflammatory disorders of uterus; Z86.73 Personal history of transient ischemic attack (TIA), and cerebral infarction without residual deficits; F17.210 Nicotine dependence, cigarettes, uncomplicated; E11.9 Type 2 diabetes mellitus without complications; I25.10 Atherosclerotic heart disease of native coronary artery without angina pectoris; I10 Essential (primary) hypertension
CPT/HCPCS: 58558; 82948; 88305; A9270; J0690; J2250; J2704; J3010; J7120

== ENCOUNTER 2024-06-16 13:09 | Emergency (ER) | payer BC, SELFPAY ==
--- NOTE | ~2024-06-16 | XR_ITS ---
EXAMINATION: XR shoulder LT min 2V DATE: 06/16/2024 13:24 INDICATION: Left shoulder pain and limited range of motion TECHNIQUE: AP internally and externally rotated, AP oblique externally rotated and transscapular Y vi ews of the left shoulder were obtained. COMPARISON: None FINDINGS: There is a comminuted fracture the proximal left humerus which includes fracture planes across the rojas rgical neck both the lesser and greater tuberosities from the articular portion of the hum eral head. There the fractures however remain in relatively near anatomic alignment with only up to 3 to 4 mm displacement and no significant angulation. No other fractures identified. Mild osteoarthritis at the glenohumeral joint with subarticular cystlike changes suggesting overlying high-grade chondromalacia at the inferior glenoid. Mild acromioclavicular osteoarthritis. Visualized portions of the left upper lung are clear. Median sternotomy wires, ostial markers and mediastinal s urgical clips consistent with prior coronary artery bypass grafting. IMPRESSION: 1. Comminuted 1 part fracture of the proximal left humerus. 2. Mild left gland humeral and acromial clavicular osteoarthritis with subarticular cystic change sug gesting overlying high-grade chondromalacia the inferior glenoid. Reviewed, dictated and finalized at location [facility]. [employer]INCIPAL [employer]ESS [employer]INE[employer] IMPRESSION: 1. Comminuted 1 part fracture of the proximal left humerus. 2. Mild left gland humeral and acromial clavicular osteoarthritis with subartic ular cystic change suggesting overlying high-grade chondromalacia the inferior glenoid.
--- NOTE | 2024-06-16 13:12 | ED.GENADULT ---
HPI - General Adult General Chief complaint: Extremity Injury, Upper Stated complaint: ARM PAIN Time Seen by Provider: 06/16/24 13:11 History of Present Illness HPI narrative: Salena is a 64F with a PMH of HTN, DMII, Carotid stenosis, CAD that presented to the ED with pain and swelling in her left shoulder. It happened after a she tripped and fell at 11 hours ago. No other injuries reported. She did not hit her head, neck or lose consciousness. Related Data Home Medications Medication Instructions Recorded Confirmed calcium carbonate (Calcium 600) 600 mg PO BID 09/29/19 06/16/24 insulin detemir U-100 100 unit/mL 30 unit subcut QPM 09/29/19 06/16/24 (3 mL) subcutaneous pen (Levemir FlexTouch U-100 Insulin) metformin 500 mg tablet,extended 2,000 mg PO BID 09/29/19 06/16/24 release 24 hr omega 4-rsk-mlu-fish oil 1,000 mg 1 cap PO BID 09/29/19 06/16/24 (120 mg-180 mg) capsule (Fish Oil) aspirin 81 mg tablet,delayed 81 mg PO DAILY 05/04/22 06/16/24 release duloxetine 20 mg capsule,delayed 20 mg PO TID 05/04/22 06/16/24 release omeprazole 20 mg capsule,delayed 20 mg PO DAILY 05/04/22 06/16/24 release amlodipine 5 mg tablet 5 mg PO DAILY 07/16/22 06/16/24 clopidogrel 75 mg tablet 75 mg PO DAILY 07/16/22 06/16/24 metoprolol tartrate 75 mg tablet 75 mg PO DAILY 07/16/22 06/16/24 semaglutide 7 mg tablet (Rybelsus) 7 mg PO DAILY 03/01/24 06/16/24 Allergies Allergy/AdvReac Type Severity Reaction Status Date / Time Opehlui-QPH-IcN Reductase AdvReac MUSCLE Verified 06/16/24 13:18 Inhibitor CRAMPING [Esnqcue-Huv-Owq Reductase Inhibitor] Review of Systems Review of Systems: All systems reviewed & are unremarkable except as noted in HPI and below PMFSH Past Medical History Medical History Cancer Heart attack Heart disease Stroke Surgical History Surgical History H/O heart bypass surgery History of breast surgery History of removal of skin mole History of tubal ligation Previous section Family History Family History Father Alcoholism Cancer Mother Cancer Diabetes mellitus Hypertension Heart disease Sibling Cancer Diabetes mellitus Hypertension Heart disease Other Depression Anxiety Grandparent Cancer Hypertension Heart disease Cerebrovascular accident Social History Social History Smoking packs per day: 1 Smoking cigarettes per day: 20.0 Years smoked: 47 Smoking pack-years: 47.00 Smoking status: Current every day smoker Tobacco type: cigarettes Alcohol use details: occasionally Living arrangements: with family Exam Const: General: cooperative, healthy appearing, comfortable, no acute distress, well developed, alert, awake and Physically active Orientation/consciousness: oriented to person, oriented to place and oriented to time HENMT: Head: normal to inspection, normocephalic and atraumatic Ears: hearing grossly normal bilaterally and external ears normal Face/Nose/Sinus: Normal external nose present Eyes: General: appearance normal, both eyes and all related structures Periorbital: periorbital findings normal Sclera: sclerae normal Pupils: Equal, round and reactive pupils present Neck: Neck: normal visual inspection Chest: Chest palpation & inspection: normal inspection of the chest Resp: Effort & Inspection: normal respiratory effort, able to speak in complete sentences and no respiratory distress Cardio: Jugular venous distension: no JVD Skin: General skin exam: normal color and no rashes or lesions noted Neuro: General: oriented to person, oriented to place and oriented to time Cranial nerves: Yes Equal, round and reactive pupils present Extrem: General: normal to inspection Other: Salena was holding left upper arm. Course Course Emergency Course: EXAMINATION: XR shoulder LT min 2V DATE: 06/16/2024 13:24 INDICATION: Left shoulder pain and limited range of motion TECHNIQUE: AP internally and externally rotated, AP oblique externally rotated and transscapular Y views of the left shoulder were obtained. COMPARISON: None FINDINGS: There is a comminuted fracture the proximal left humerus which includes fracture planes across the surgical neck both the lesser and greater tuberosities from the articular portion of the humeral head. There the fractures however remain in relatively near anatomic alignment with only up to 3 to 4 mm displacement and no significant angulation. No other fractures identified. Mild osteoarthritis at the glenohumeral joint with subarticular cystlike changes suggesting overlying high-grade chondromalacia at the inferior glenoid. Mild acromioclavicular osteoarthritis. Visualized portions of the left upper lung are clear. Median sternotomy wires, ostial markers and mediastinal surgical clips consistent with prior coronary artery bypass grafting. IMPRESSION: 1. Comminuted 1 part fracture of the proximal left humerus. 2. 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 I spoke with Dr. Ramirez of ortho at [place] recommended sling and discharge then follow up in clinic. Discharge Plan Discharge Clinical Impression: Fracture of proximal end of radius Patient Disposition: Home, Self-Care Condition: Stable Instructions: Arm Fracture in Adults (ED) Additional Instructions: Please call [phone] to arrange follow up with [facility] orthopedics. Please return for any new, concerning or worsening symptoms. Prescriptions: New hydrocodone-acetaminophen 5-325 mg tablet 1 tablet PO Q8H PRN (Reason: pain) Qty: 20 0RF No Action aspirin [Aspir-81] 81 mg Tablet,Delayed Release (Dr/Ec) 81 mg PO DAILY Patient Comments: pt stated that she was to continue aspirin omeprazole 20 mg Capsule,Delayed Release(Dr/Ec) 20 mg PO DAILY duloxetine 20 mg capsule,delayed release(DR/EC) 20 mg PO TID clopidogrel 75 mg tablet 75 mg PO DAILY Patient Comments: pt stated she was told to hold for 5 days prior to surgery amlodipine 5 mg tablet 5 mg PO DAILY metoprolol tartrate 75 mg tablet 75 mg PO DAILY Rybelsus 7 mg tablet 7 mg PO DAILY metformin 500 mg tablet extended release 24 hr 2,000 mg PO BID Rx Instructions: 500mg AM and 1500mg HS Levemir FlexTouch U100 Insulin 100 unit/mL (3 mL) insulin pen 30 unit SUBCUT QPM calcium carbonate [Calcium 600] 600 mg calcium (1,500 mg) Tablet 600 mg PO BID omega 2-irp-xsb-fish oil [Fish Oil] 1,000 mg (120 mg-180 mg) Capsule 1 cap PO BID Follow-up/Referrals: UNKNOWN,DOCTOR [Primary Care Provider] -
[2024-06-16 13:13] VITALS: BP 177/83; PULSE 73; RESP 20; TEMP 36.7; O2SAT 98
[2024-06-16 13:48] LABS: Basophils Absolute Auto 0.09 K/mm3 (0.00-0.10); Basophils Percent Auto 0.8 % (0.0-1.0); Eosinophils Percent Auto 0.9 % (1.0-6.0); Hematocrit 38.8 % (35.0-49.0); Hemoglobin 13.2 g/dL (12.0-15.0); Immature Granulocyte Absolute 0.06 K/mm3 (0.00-0.00); Immature Granulocyte Percent A 0.5 % (0.0-0.0); Lymphocytes Absolute Auto 1.63 K/mm3 (1.10-4.50); Lymphocytes Percent Auto 14.3 % (18.0-42.0); Mean Corpuscular Hemoglobin 30.1 pg (27.0-31.0); Mean Corpuscular Volume 88.4 fL (78.0-102.0); Mean Platelet Volume 11.3 fl (9.2-11.8); Monocytes Absolute Auto 0.72 K/mm3 (0.10-0.90); Monocytes Percent Auto 6.3 % (2.0-11.0); Neutrophils Absolute Auto 8.77 K/mm3 (1.70-7.20); Neutrophils Percent Auto 77.2 % (50.0-70.0); Platelet Count Result 218 K/mm3 (150-420); Red Blood Count 4.39 M/mm3 (4.20-5.40); Red Cell Distribution Width 14.3 % (11.6-14.4); White Blood Count 11.4 K/mm3 (4.8-10.8)
[2024-06-16] MEDS: MORPHINE SULFATE (*CRX) 4 MG/ML INJ 2 MG IM (13:49)
[2024-06-16 13:50] VITALS: BP 156/62; PULSE 63; RESP 16; O2SAT 97
[2024-06-16 13:59] LABS: Prothrombin Time 11.1 Seconds (9.50-12.1)
[2024-06-16 14:01] LABS: Alanine Aminotransferase 44 U/L (14-59); Albumin Level 3.3 g/dL (3.4-5.0); Alkaline Phosphatase 91 U/L (46-116); Anion Gap 12 mmol/L (4-12); Aspartate Amino Transferase 38 U/L (15-37); Bilirubin,Total 0.8 mg/dL (0.00-1.00); Blood Urea Nitrogen 12 mg/dL (7-18); Carbon Dioxide 26 mmol/L (21-32); Chloride 102 mmol/L (98-108); Estimated CRCL calculation 80 ml/min; Estimated Glomerular Filt Rate > 60; Glucose 170 mg/dL (70-99); Osmolality Calculated 293 mOsm/kg (285-295); Potassium 3.5 mmol/L (3.5-5.1); Sodium 140 mmol/L (136-145); Total Protein 6.7 g/dL (6.4-8.2)
[2024-06-16 14:07] VITALS: BP 156/62; PULSE 63; RESP 16; TEMP 36.7; O2SAT 97
== END 2024-06-16 14:07 | disposition home or self-care (01) ==
PROVIDERS: Emergency Provider Family Medicine
DX: S52.102A Unspecified fracture of upper end of left radius, initial encounter for closed fracture (principal); I10 Essential (primary) hypertension; E11.9 Type 2 diabetes mellitus without complications; I25.10 Atherosclerotic heart disease of native coronary artery without angina pectoris; I25.2 Old myocardial infarction; F17.210 Nicotine dependence, cigarettes, uncomplicated; Z79.4 Long term (current) use of insulin; Z79.899 Other long term (current) drug therapy; Z79.82 Long term (current) use of aspirin; Z86.73 Personal history of transient ischemic attack (TIA), and cerebral infarction without residual deficits; W01.0XXA Fall on same level from slipping, tripping and stumbling without subsequent striking against object, initial encounter
CPT/HCPCS: 36415; 73030; 80053; 85025; 85610; 96372; 99284; J2270; L3670

== ENCOUNTER 2024-12-16 13:08 | Outpatient (CLI) | payer OTHER, SELFPAY ==
--- NOTE | ~2024-12-16 | CT_ITS ---
CT Scan of the Chest without Contrast: Clinical Indication: Lung cancer screening, nicotine dependence Technique: Contiguous sections were acquired throughout the chest without intravenous contrast. Dose reduction technique was used on this scan by utilizing automated exposure control and iterative recon struction technique. The dose-length product (DLP) was 254.92 mGy-cm. COMPARISON: 05/04/2022 Findings: There is no evidence of any significant mediastinal, hilar or axillary lymphadenopathy. Extensive cor onary artery calcifications are present. There is no evidence of pleural or pericardial effusion. 7 mm right middle lobe nodule present (axial image 61). There are mild patchy groundglass opacities i n the lungs. Images through the upper abdomen reveal 3 cm adrenal nodule with low attenuation some areas, compatib le with adenoma or myelolipoma. Impression: Lung RADS 4A: Suspicious. 3 month follow-up CT recommended. Reviewed, dictated and finalized at [facility]. Impression: Lung RADS 4A: Suspicious. 3 month follow-up CT recommended.
== END 2024-12-16 13:09 | disposition home or self-care (01) ==
LOC: MICIMG 13:10
PROVIDERS: PCP Internal Medicine; Visit Provider Internal Medicine
DX: Z12.2 Encounter for screening for malignant neoplasm of respiratory organs (principal); Z87.891 Personal history of nicotine dependence
CPT/HCPCS: 71271